=== PATIENT | female | born 1960 | race Caucasian/White ===

== ENCOUNTER 2019-11-09 14:22 | Emergency (ER) | payer MEDICARE, SELFPAY ==
[2019-11-09 14:28] VITALS: BP 138/81; PULSE 70; RESP 16; TEMP 36.4; O2SAT 97
--- NOTE | 2019-11-09 14:30 | DI.RAD_ITS ---
EXAM: XR CHEST 2V PA LATERAL CLINICAL HISTORY: central and right CP after fall, r/o fracture TECHNIQUE: 2D digital imaging was performed. COMPARISON: No exams were available for comparison FINDINGS: MEDIASTINUM: Normal. HEART: Normal. PULMONARY VASCULATURE: Normal. LUNGS: Clear. PLEURAL SPACE: No pleural effusion or pneumothorax. BONE:Degenerative changes in the spine. OTHER FINDINGS:Normal. IMPRESSION: No acute pulmonary findings. DATA REPOSITORY: RADIATION DOSE DELIVERED:
--- NOTE | 2019-11-09 14:30 | DI.RAD_ITS ---
EXAM: XR STERNUM CLINICAL HISTORY: central sternal pain after fall. TECHNIQUE: 2D digital imaging was performed. COMPARISON: XR STERNUM from 11/09/2019 FINDINGS: BONES: No acute fracture is present. No bony destructive lesion is seen. JOINTS: No dislocation present. SOFT TISSUE: Normal. IMPRESSION: Unremarkable radiographs of the sternum. DATA REPOSITORY: RADIATION DOSE DELIVERED:
--- NOTE | 2019-11-09 14:36 | ED.GENADUL_ITS ---
Discharge Plan Disposition Patient Disposition: HOME Condition: Good Discharge Details Chief Complaint: Chest/Rib Clinical Impression: Contusion of sternum ED Provider: Jaswant Baig Home Meds and New Rx's Prescriptions: New lidocaine [Lidoderm] 1 PATCH patch 1 patch Topical Q24H Qty: 4 RF: 0 No Action sertraline 100 mg Tablet 100 mg PO BID RF: 0 phenytoin sodium extended 100 mg Capsule 100 mg PO BID RF: 0 valacyclovir 500 mg Tablet 500 mg PO DAILY RF: 0 hydroxychloroquine [Plaquenil] 200 mg Tablet 200 mg PO BID RF: 0 naproxen 500 mg Tablet 500 mg PO BID RF: 0 phenobarbital 32.4 mg Tablet 32.4 mg PO BID RF: 0 Discharge Instructions Instructions: Contusion in Adults (ED) Additional Instructions: Your x-ray of your sternum and your chest showed no evidence of fracture, the lungs appear stable, no other abnormalities. Cardiac work-up shows no evidence of cardiac etiology at this time. I feel that you have notably bruised the muscles in your bone of your sternum and ribs. I would recommend continue using the Lidoderm patches as directed. If your insurance does not cover these you can get [id number] Lidoderm patches that are 1% lower, and sometimes cheaper. Please continue to take Tylenol and Motrin as needed. If you notice any worsening of your symptoms, or any new symptoms such as vomiting, diarrhea, fever, chills, shortness of breath, chest pain, numbness, weakness, or fainting , please return immediately to the emergency department for reevaluation. Please follow up with your primary care provider as soon as possible for reassessment and reevaluation. As always, it was a pleasure participating in your medical care today. Medical Decision Making 59-year-old female with a past medical history of lupus who presents today for chest pain. Patient states that 1 week ago she fell and the majority of the force hit her central chest via a mechanical fall. She has had mild pain since then, however it is worse in the last 24 hours. Pain is sharp and achy in nature, and at the right sternal border. Worse with deep breathing, palpation. She did see [facility] yesterday, and at that time had an unremarkable visit. She states that the pain has increased since then. She has been taking Tylenol and Motrin but this is not relieved her symptoms. She denies any cough, fever, chills, abdominal pain, numbness tingling or weakness. She denies any other modifying factors. She denies any other complaints. She denies any personal history of cardiac disease, hypertension or high cholesterol or diabetes. She does admit to smoking in the distant past. Physical exam demonstrates reproducible chest tenderness at the right sternal border. No paradoxical movements or subcutaneous crepitus. Exam is otherwise unremarkable. No focal neurologic deficits, no evidence of dizziness or ataxia at this time. Bedside ultrasound shows good lung sliding bilaterally. Signs and symptoms are most concerning for contusion and muscle pain versus rib fracture. Less likely is atypical ACS in conjunction with atraumatic episode. No symptoms of pericardial tamponade are noted currently. We will give Lidoderm patch, get chest x-ray and sternal films, EKG cardiac work-up and reassess. 3:44 PM X-ray results have returned negative per radiology, no evidence of fracture or acute process. No evidence of pneumothorax. Patient's pain is notably improved with Lidoderm patch, will give prescription of Lidoderm patch for home use. Recommend continued NSAIDs as needed. Repeat exam continues to demonstrate signs and symptoms consistent with a musculoskeletal strain and contusion and tenderness, and her symptoms are inconsistent with ACS, especially in conjunction with negative cardiac markers, unremarkable EKG and laboratory work- up. This time I feel that the patient be discharged home with close follow-up with her PCP. We did offer a sling to help hold her arm to decrease movement in general however she does not want it at this time. We did recommend outpatient physical therapy with her PCP down in [facility]. At this time the patient signs and symptoms are clinically inconsistent with acute cardiothoracic life-threatening pathology. Patient will be discharged home. I have extensively reviewed the treatment plan and discharge instructions with the patient. I have addressed all patient concerns at this time. The patient was made aware of what symptoms to monitor for that would warrant a return to the emergency department. Discussed the plan with the patient, they demonstrate verbal understanding and agreement with our assessment and plan at this time. EKG 14: 34 Rate 71, intervals normal, sinus rhythm, no significant ST elevations or depressions, no evidence of STEMI. X-ray sternal results: Unremarkable radiographs of the [sternum MEDIASTINUM: [Normal.] [] HEART: [Normal.] [] PULMONARY VASCULATURE: [Normal.] [] LUNGS: [Clear.] [] PLEURAL SPACE: [No pleural effusion or pneumothorax.] [] BONE:[Degenerative changes in the spine.] [] OTHER FINDINGS:[Normal.] [] HPI General Date/Time Provider Initiated Documentation: 11/09/19 14:23 . HPI Narrative: 59-year-old female with a past medical history of lupus who presents today for chest pain. Patient states that 1 week ago she fell and the majority of the force hit her central chest via a mechanical fall. She has had mild pain since then, however it is worse in the last 24 hours. Pain is sharp and achy in nature, and at the right sternal border. Worse with deep breathing, palpation. She did see [facility] yesterday, and at that time had an unremarkable visit. She states that the pain has increased since then. She has been taking Tylenol and Motrin but this is not relieved her symptoms. She denies any cough, fever, chills, abdominal pain, numbness tingling or weakness. She denies any other modifying factors. She denies any other complaints. She denies any personal history of cardiac disease, hypertension or high cholesterol or diabetes. She does admit to smoking in the distant past. Related Data Home Medications Medication Instructions Recorded Confirmed hydroxychloroquine [Plaquenil] 200 mg PO BID 11/09/19 11/09/19 lidocaine [Lidoderm] 1 patch TOPICAL Q24H #4 patch 11/09/19 naproxen 500 mg PO BID 11/09/19 11/09/19 phenobarbital 32.4 mg PO BID 11/09/19 11/09/19 phenytoin sodium extended 100 mg PO BID 11/09/19 11/09/19 sertraline 100 mg PO BID 11/09/19 11/09/19 valacyclovir 500 mg PO DAILY 11/09/19 11/09/19 Previous Rx's Medication Instructions Recorded lidocaine [Lidoderm] 1 patch TOPICAL Q24H #4 patch 11/09/19 Allergies Allergy/AdvReac Type Severity Reaction Status Date / Time No Known Allergies Allergy Unverified 11/09/19 14:33 General Stated Complaint: Chest/Rib NAVID: 3 Review of Systems All systems reviewed & are unremarkable except as noted in HPI and below PFSH Social History Smoking/Tobacco Use Status: Former Tobacco Use Tobacco: How many years used: 20 Alcohol Intake: current Alcohol Intake frequency: 0-2 drinks per day Alcohol type: wine Drug use: Occasionally Substance use type: marijuana Do you feel safe at home: Yes Do you feel safe in your relationship?: Yes Exam Narrative Exam Narrative: 1.Const: Well-nourished, Well-developed, appearing stated age 2.Eyes: PERRL, no conjunctival injection, and symmetrical lids. 3.ENT: Atraumatic external nose and ears. Moist MM. Neck: Symmetric, trachea midline, No thyromegaly. 4.CVS: +S1/S2, No murmurs or gallops. Peripheral pulses 2+ and equal in all extremities. Brisk capillary refill in all extremities. 5.RESP: Unlabored respiratory effort. Clear to auscultation bilaterally. No wheezes rales or rhonchi. Palpation of the patient's sternum elicits tenderness. Right sternal border is notably tender with reproducible pain. Bedside ultrasound shows good lung sliding bilaterally. 6.GI: Soft, Nontender/Nondistended, No hepatosplenomegaly. No guarding or rebound. 7.MSK: Normocephalic/Atraumatic, Extremities w/o deformity or ttp No cyanosis or clubbing, Normal movement of all extremities 8.Skin: Warm, Dry. No rashes or lesions. 9.Neuro: director of program management II-XII grossly intact. Sensation grossly intact, no focal neurologic deficits. Patient ambulates well, no evidence of neurologic abnormality. 10.Psych: (AAO) x3. Appropriate mood and affect Course Vital Signs Vital signs: Vital Signs Temperature 36.4 C L 11/09/19 14:28 Pulse 70 11/09/19 14:28 Respiratory Rate 16 11/09/19 14:28 Blood Pressure 138/81 11/09/19 14:28 Pulse Oximetry 97 11/09/19 14:28 Temperature 36.4 C L 11/09/19 14:28 Temperature Source Skin 11/09/19 14:28 Pulse 70 11/09/19 14:28 Respiratory Rate 16 11/09/19 14:28 Blood Pressure 138/81 11/09/19 14:28 Blood Pressure Position Sitting 11/09/19 14:28 Pulse Oximetry 97 11/09/19 14:28 Oxygen Delivery Method Room Air 11/09/19 14:28 Oxygen Flow Rate 0 11/09/19 14:28 Pain Level 10 11/09/19 14:28
[2019-11-09] MEDS: Lidocaine 5% Patch 1 PATCH TP (14:50)
[2019-11-09 14:51] LABS: Abs Immature Grans 0.01 k/cumm (0.0-0.09); Absolute Basophil Count 0.01 k/cumm (0.0-0.2); Absolute Eosinophil Count 0.18 k/cumm (0.0-0.7); Absolute Lymphocyte Count 1.48 k/cumm (1.2-3.4); Absolute Monocyte Count 0.53 k/cumm (0.11-0.7); Absolute Neutrophil Count 4.83 k/cumm (1.2-6.7); Basophils % 0.1; Eosinophils % 2.6; HCT 39.3 % (36.0-46.0); HGB 13.4 g/dL (12.0-15.5); Immature Grans % 0.1 %; Mean Corp. HGB Concentration 34.1 g/dL (32.0-36.0); Mean Corpuscular Volume 96.8 fL (80-95); Mean Platelet Volume 9.2 fL (8.0-11.0); Monocytes % 7.5; Neutrophils % 68.7; Platelet Count 276 x1000/uL (130-400); RBC 4.06 m/cumm (4.00-5.20); RBC Distribution Width 12.8 % (11.7-14.6); White Blood Cell Count 7.04 k/cumm (4.4-10.8)
[2019-11-09 15:08] LABS: ALT 20 U/L (14-59); AST 22 U/L (15-37); Albumin 3.5 g/dL (3.4-5.0); Alkaline Phosphatase 96 U/L (46-116); BUN 18 mg/dL (7-18); Bilirubin, Total 0.2 mg/dL (0.2-1.0); CREATININE 0.83 mg/dL (0.55-1.02); Calcium 8.2 mg/dL (8.5-10.1); Chloride 102 mmol/L (98-107); Glucose 107 mg/dL (74-106); Sodium 136 mmol/L (136-145)
[2019-11-09 15:11] LABS: Troponin I < 0.05 ng/Ml (<0.06)
== END 2019-11-09 15:59 | disposition home or self-care (01) ==
PROVIDERS: Emergency Provider Student in an Organized Health Care Education/Training Program
DX: S20.219A Contusion of unspecified front wall of thorax, initial encounter (principal); W19.XXXA Unspecified fall, initial encounter
CPT/HCPCS: 80053; 93005; 99284; 71046; 71120; 84484; 85025; 93010